=== PATIENT | female | born 1955 | race Caucasian/White ===

== ENCOUNTER → 2017-09-27 | Outpatient (CLI) | payer MEDICARE ==
[~2017-09-27] MED LIST: ASPIRIN81 M3 PO; Z MIRTAZAPINE PO; Z.0.AMBIEN10 MG PO; Z.0.ATENOLOL50 MG PO; Z.0.CLONAZEPAM1 MG PO; Z.0.CLONAZEPAM2 MG PO; Z.0.CRESTOR40 MG PO; Z.0.CYMBALTA20 MG PO; Z.0.CYMBALTA60 MG PO; Z.0.FLOMAX0.4 MG PO; Z.0.IMDUR60 MG PO; Z.0.LANTUS100 UNIT/1 SQ; Z.0.MAGNESIUM400 MG PO; Z.0.NEXIUM40 MG PO; Z.0.NOVOLOG100 UNIT/ SQ; Z.0.SOMA350 MG PO; Z.0.TIROSINT75 MCG PO; Z.0.VASOTEC20 MG PO; [UNRECOGNIZED DRUG - OTHER] PO
== END ==
LOC: MAMMO 08:49
PROVIDERS: ATTEND Internal Medicine
DX: Z12.31 Encounter for screening mammogram for malignant neoplasm of breast (principal)
CPT/HCPCS: 77067